=== PATIENT | female | born 1945 | race Caucasian/White ===

== ENCOUNTER 2021-11-02 12:13 | Observation (INO) ==
[2021-11-02 14:32] LABS: Alanine Aminotransferase 17 Units/L (7-52); Albumin 3.6 g/dL (3.5-5.7); Albumin/Globulin Ratio 1.1 (1.1-2.2); Alkaline Phosphatase 50 Units/L (34-104); Aspartate Amino Transferase 32 Units/L (13-39); BUN/Creatinine Ratio 25 (6-26); Bilirubin,Direct 0.1 mg/dL (0.0-0.2); Bilirubin,Indirect 0.3 mg/dL (0.0-1.0); Bilirubin,Total 0.4 mg/dL (0.3-1.0); Blood Urea Nitrogen 20 mg/dL (8-23); Calcium 9.2 mg/dL (8.6-10.3); Carbon Dioxide 28 mEq/L (23-29); Chloride 102 mEq/L (98-107); Globulin 3.3 g/dL (2.4-3.5); Glucose 131 mg/dL (70-105); Lipase 34 Units/L (11-82); Osmolality,Calculated 290 (280-300); Potassium 4.2 mEq/L (3.5-5.1); Sodium 138 mEq/L (136-145); Total Protein 6.9 g/dL (6.4-8.9); Troponin I < 0.03 ng/mL (< 0.04)
[2021-11-02 14:35] LABS: Basophils % 0.6 %; Eosinophils % 0.3 %; Hemoglobin 12.6 g/dL (11.5-15.4); Immature Granulocytes % 0.5 % (0-4); Lymphocytes # 1.6 K/mcL (0.6-4.6); Lymphocytes % 24.3 %; Mean Corpuscular HGB Conc 32.3 g/dL (31.6-35.5); Mean Corpuscular Hemoglobin 30.7 pg (28.0-33.3); Mean Corpuscular Volume 95.1 fL (83.0-100.0); Monocytes # 0.7 K/mcL (0.0-1.3); Monocytes % 10.4 %; Neutrophils # 4.2 K/mcL (1.6-8.9); Platelet Count 272 K/mcL (140-400); Red Cell Distribution Width 13.2 % (11.5-14.5); Segmented Neutrophils % 63.9 %; White Blood Count 6.6 K/mcL (4.3-11.1)
[2021-11-02 14:42] LABS: Thyroid Stimulating Hormone 3.578 mcIU/mL (0.340-5.600)
[2021-11-02] MEDS ORDERED: Aspirin 325 MG TABLET PO ONE (15:24)
[2021-11-02] MEDS ORDERED: Iopamidol - 370 500 ML MLS IVP ONE (17:17)
[2021-11-02] MEDS ORDERED: Naloxone 0.4 MG/ML INJ IVP PRN (17:19)
[2021-11-02] MEDS ORDERED: Ondansetron 4 MG/2 ML VIAL IVP PRN (17:19)
[2021-11-02 18:11] LABS: C-Reactive Protein 23 mg/L (Less than 10)
[2021-11-02] MEDS: Gabapentin 300 MG CAPSULE PO SCH (21:30)
[2021-11-02 22:27] LABS: Adenovirus Not Detected (Not Detect); Bordetella Pertussis Not Detected (Not Detect); Chlamydophila pneumoniae Not Detected (Not Detect); Coronavirus 229E Not Detected (Not Detect); Coronavirus HKU1 Not Detected (Not Detect); Coronavirus NL63 Not Detected (Not Detect); Coronavirus OC43 Not Detected (Not Detect); Human Metapneumovirus Not Detected (Not Detect); Human Rhinovirus/Enterovirus Not Detected (Not Detect); Influenza A Subtype 2009 H1 Not Detected (Not Detect); Influenza B Not Detected (Not Detect); Mycoplasma pneumoniae Not Detected (Not Detect); Parainfluenza Virus 1 Not Detected (Not Detect); Parainfluenza Virus 2 Not Detected (Not Detect); Parainfluenza Virus 3 Not Detected (Not Detect); Parainfluenza Virus 4 Not Detected (Not Detect); Respiratory Syncytial Virus Not Detected (Not Detect); SARS-CoV-2 Not Detected (Not Detect)
[2021-11-02] MEDS ORDERED: Melatonin 3 MG TABLET PO PRN (23:27)
[2021-11-03 04:17] LABS: Bilirubin,Urine Negative (Negative); Blood,Urine Negative (Negative); Clarity,Urine Clear (Clear); Color,Urine Light-Yellow (Yellow); Glucose,Urine (UA) Normal (Normal); Ketones,Urine Negative (Negative); Leukocyte Esterase,Urine Negative (Negative); Nitrite,Urine Negative (Negative); Protein,Urine Negative (Neg-Trace); Specific Gravity,Urine > 1.030 (1.010-1.025); Urobilinogen,Urine Normal (Normal)
[2021-11-03 05:00] LABS: Calcium 9.3 mg/dL (8.6-10.3); Magnesium 1.7 mg/dL (1.6-2.6); Potassium 3.8 mEq/L (3.5-5.1)
[2021-11-03] MEDS ORDERED: Aspirin Enteric Coated 81 MG Tablet PO SCH (09:00)
[2021-11-03] MEDS ORDERED: Magnesium Oxide 400 MG TABLET PO SCH (09:00)
[2021-11-03] MEDS: Gabapentin 300 MG CAPSULE PO SCH (09:42)
[2021-11-03] MEDS ORDERED: *HR* Heparin 5,000 UNIT/ML VIAL IVP ONE (10:47)
[2021-11-03] MEDS ORDERED: *HR* Heparin 5,000 UNIT/ML VIAL IVP PRN ×2 (10:47)
[2021-11-03] MEDS ORDERED: Heparin 25,000UNIT/250ML 1/2NS 25,000 UNIT/250 ML IV.SOLN IVC SCH (11:00)
[2021-11-03 12:06] LABS: Heparin anti-factor XA UFH < 0.04 IU/mL (0.30-0.70); INR 1.2; Prothrombin Time 13.9 Seconds (9.4-12.1)
[2021-11-03 16:33] VITALS: BP 111/61; PULSE 86; TEMP 98.5; O2SAT 93
[2021-11-03] MEDS ORDERED: Apixaban 5 MG TABLET PO SCH (17:28)
[2021-11-04] MEDS ORDERED: Levothyroxine 25 MCG TABLET PO SCH (06:30)
== END 2021-11-03 18:12 | disposition home or self-care (01) ==
LOC: EMEROOARM 12:13 → 2NENU 12:13 → SUATTDRO 17:12 → 2NENU 18:21
PROVIDERS: ADMIT Student in an Organized Health Care Education/Training Program; ATTEND Pharmacist